=== PATIENT | female | born 1945 | race Two or more races ===

== ENCOUNTER 2018-12-14 14:04 | Inpatient (IN) | payer OTHER, MEDICAID | END 2018-12-16 12:15 | disposition home or self-care (01) | LOC: TELE 14:05 → ER 14:04 → TELE-EAST 12-15 01:11 | DX: R18.8 Other ascites (principal); D64.9 Anemia, unspecified; N93.9 Abnormal uterine and vaginal bleeding, unspecified; M06.9 Rheumatoid arthritis, unspecified; I10 Essential (primary) hypertension; Z90.49 Acquired absence of other specified parts of digestive tract ==